=== PATIENT | male | born 1985 | race Caucasian/White ===

== ENCOUNTER 2018-12-23 16:56 | Emergency (ER) | payer OTHER ==
[2018-12-23 18:03] VITALS: BP 129/80
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
== END 2018-12-23 18:25 | disposition home or self-care (01) ==
LOC: UCCORT 16:56
DX: Z48.02 Encounter for removal of sutures (principal)
CPT/HCPCS: 99201; G0463